=== PATIENT | female | born 1955 | race Caucasian/White ===

== ENCOUNTER 2016-08-19 08:41 | Emergency (ER) | payer MEDICAID ==
[2016-08-19] MEDS ORDERED: 0.9 % SODIUM CHLORIDE 1000ML 1,000 ML IV PRN (08:52)
--- NOTE | 2016-08-19 08:59 | Emergency Department Record ---
History of Present Illness - General Chief Complaint: Chest Pain Stated Complaint: CHEST PAIN Time Seen by Provider: 08/19/16 08:52 Source: Patient, Family Mode of Arrival: Ambulatory Limitations: No limitations - History of Present Illness Initial Comments: 60 yo female presents with chest pain. The chest pain comes and goes. The first episode was Friday night. It was noted at that time to be a heavy feeling or squeeze. The onset was at rest. The discomfort has come and gone. It it mostly middle to left chest. At times it is sharper. It radiates at times to the shoulder, neck, jaw and between the shoulder blades at times. It is not reproduced with breathing, deep breaths, moving, or palpation. The longest the pain has lasted is about one minute. She has noted some discomfort with swallowing but this is not consistent. She is not having pain at this time. MD Complaint: Chest pain Onset/Timin -: Days(s) Onset: During rest Pain Location: Substernal Pain Radiation: Back Severity: Severe Quality: Sharp Consistency: Intermittent Improves With: Nothing Worsens With: Nothing Treatments Prior to Arrival: None - Related Data Allergies Allergy/AdvReac Type Severity Reaction Status Date / Time latex Allergy Intermediate Welts Verified 08/19/16 08:47 Travel Screening - Travel/Exposure Within Last 30 Days Have you traveled within the last 30 days?: No Review of Systems Constitutional: Denies: Chills, Fever, Malaise, Weakness Eyes: Denies: Eye discharge ENT: Denies: Congestion, Throat pain Respiratory: Denies: Cough, Dyspnea, Hemoptysis, Stridor, Wheezes Cardiovascular: Reports: Chest pain, Palpitations. Denies: Syncope Endocrine: Denies: Fatigue, Polydipsia, Polyuria Gastrointestinal: Denies: Abdominal pain, Diarrhea, Nausea, Vomiting Genitourinary: Denies: Dysuria, Urgency Musculoskeletal: Denies: Arthralgia, Back pain, Myalgia, Neck pain Skin: Denies: Bruising, Change in color, Rash Neurological: Denies: Confusion, Headache Psychiatric: Denies: Anxiety Hematological/Lymphatic: Denies: Blood Clots, Easy bleeding, Easy bruising, Swollen glands Past Medical History - SOCIAL HISTORY Smoking Status: Never smoker Alcohol Use: None Drug Use: None - RESPIRATORY Hx Respiratory Disorders: Yes Hx Sleep Apnea: Yes Hx of CPAP: Yes - CARDIOVASCULAR Hx Cardio Disorders: Yes Hx Cardiac Cath: Yes Hx Chest Pain: Yes Hx Hypertension: Yes Hx Palpitations: Yes Comment:: high cholestersol - NEURO Hx Neuro Disorders: No - GI Hx GI Disorders: No - Hx Genitourinary Disorders: No - ENDOCRINE Hx Endocrine Disorders: No - MUSCULOSKELETAL Hx Musculoskeletal Disorders: No - PSYCH Hx Psych Problems: No - HEMATOLOGY/ONCOLOGY Hx Hematology/Oncology Disorders: No Family Medical History Any Significant Family History?: No Physical Exam - General General Appearance: Alert, Oriented x3, Cooperative, No acute distress Limitations: No limitations - Head Head exam: Normal inspection - Eye Eye exam: Normal appearance. negative: Conjunctival injection - ENT ENT exam: Normal exam. negative: Mucous membranes moist Ear exam: Normal external inspection Nasal Exam: Normal inspection Mouth exam: Normal external inspection Teeth exam: Normal inspection Throat exam: Normal inspection - Neck Neck exam: Normal inspection, Full ROM. negative: Tenderness - Respiratory Respiratory exam: Normal lung sounds bilaterally. negative: Accessory muscle use, Chest wall tenderness, Decreased breath sounds, Respiratory distress, Rhonchi, Stridor, Wheezes - Cardiovascular Cardiovascular Exam: Regular rate, Normal rhythm, Normal heart sounds Peripheral Pulses: 2+: Radial (R), Radial (L) - GI/Abdominal GI/Abdominal exam: Soft. negative: Diminished bowel sounds, Tenderness - Rectal Rectal exam: Deferred - exam: Deferred - Extremities Extremities exam: Normal inspection, Full ROM, Normal capillary refill. negative: Pedal edema, Tenderness - Back Back exam: Reports: Normal inspection, Full ROM. Denies: Muscle spasm, Rash noted, Tenderness - Neurological Neurological exam: Alert, Normal gait, Oriented X3 - Psychiatric Psychiatric exam: Normal affect, Normal mood. negative: Agitated, Anxious, Depressed - Skin Skin exam: Dry, Intact, Normal color, Warm Course Vital Signs 08/19/16 08:42 Temperature 98.3 F Pulse Rate 67 Respiratory 14 Rate Blood Pressure 143/83 Pulse Ox 94 L - Reevaluation(s) Reevaluation #1: EKG 0839 NSR, rate 64, intervals QTc 473, axis left, poor R waves progression. No old. 08/19/16 08:58 Reevaluation #2: The patient denies a history of AMI. She was evaluated 3-4 years ago in [place] for chest pain. She had an abnormal stress test that lead to a cath. She states no intervention was performed. 08/19/16 08:59 Reevaluation #3: The labs were reviewed No acute changes in the CBC,Troponin Records were reviewed form [place] 12/21/14 Graded Exercise test Lexiscan: ST/T waves changes, Borderline positive 12/21/14 Breast attenuation, no stress induced ischemia. EF 69 EKG then similar poor r wave 05/26/13 Cath Report reviewed extremely minor luminal irregularities. essentially normal coronaries. 08/19/16 09:47 08/19/16 09:59 Reevaluation #4: D-dimer is negative CXR is negative 08/19/16 10:07 Reevaluation #5: I SW Dr Pena of [facility] [place] her prior work up with normal coronaries and a normal follow up stress test in 2014, he recommends repeat enzymes then appointment to be seen Friday with Dr Parker in the [facility] clinic. 08/19/16 10:48 - Consultations Consultation #1: 13:50 the repeat Troponin is negative DC home with follow up scheduled Medical Decision Making - Lab Data Result diagrams: 08/19/16 08:57 08/19/16 08:57 Disposition Disposition: Discharge Clinical Impression: Chest pain Qualifiers: Chest pain type: other chest pain Qualified Code(s): R07.89 - Other chest pain ; R07.8 - Other chest pain Disposition: Home, Self-Care Condition: (1) Good Instructions: Chest Pain (ED) Additional Instructions: Follow up with Dr Parker as scheduled on Friday Return if you have any pain that lasts longer than 5 minutes Return if any new symptoms, short of breath, dizzy, or any new concerns Forms: Patient Portal Access Time of Disposition: 13:48
[2016-08-19 09:05] LABS: BASO % 0.3 % (0-6); GRAN % 56.8 % (47-80); HEMATOCRIT 40.3 % (35.0-47.0); HEMOGLOBIN 13.8 gm/dl (11.6-16.0); LYMPH % 30.2 % (16-45); MEAN CORPUSCULAR HEMOGLOBIN 30.8 pg (27-33); MEAN CORPUSCULAR HGB CONC 34.2 g/dl (32-36); MEAN PLATELET VOLUME 10.4 fl (7.4-10.4); MONO % 8.7 % (0-9); PLATELET COUNT 298 K/uL (130-400); RED BLOOD COUNT 4.48 M/uL (3.80-5.40); RED CELL DISTRIBUTION WIDTH 12.4 % (11.5-14.5); WHITE BLOOD COUNT W/O DIFF 7.2 K/uL (4.2-12.2)
[2016-08-19 09:17] LABS: ALB/GLOB RATIO 1.5 (1.1-1.8); ALBUMIN 4.3 gm/dL (3.5-5.0); ALKALINE PHOSPHATASE 116 U/L (38-126); ALT/SGPT 64 U/L (9-52); ANION GAP 10.1 (7-16); AST/SGOT 41 U/L (14-36); BLOOD UREA NITROGEN 9 mg/dL (7-17); CARBON DIOXIDE 26.9 mmol/L (22-30); CREATINE PHOSPHOKINASE 124 U/L (30-135); CREATININE 0.6 mg/dL (0.52-1.04); EST GLOMERULAR FILTRATION RATE > 60 ml/min; GLUCOSE,RANDOM 132 mg/dL (70-110); TOTAL PROTEIN 7.2 gm/dL (6.3-8.2)
[2016-08-19 09:20] LABS: INR 0.89; PARTIAL THROMBOPLASTIN TIME 25.9 SECONDS (24.5-39.1); PROTHROMBIN TIME (PATIENT) 10.1 SECONDS (9.5-12.1)
[2016-08-19 09:21] LABS: D-DIMER 0.37 mg/L FEU (0-0.59)
[2016-08-19 09:30] LABS: CKMB 0.5 ug/L (0-6); TROPONIN I < 0.012 ng/mL (0.00-0.034)
[2016-08-19] MEDS ORDERED: ASPIRIN 325 MG TABLET PO ONE (10:14)
[2016-08-19 13:42] LABS: CKMB 0.4 ug/L (0-6)
[2016-08-19 13:46] LABS: TROPONIN I < 0.012 ng/mL (0.00-0.034)
--- NOTE | 2016-08-22 08:42 | RADIOLOGY REPORT ---
EXAM: CHEST, TWO VIEWS HISTORY: MID CHEST PAIN FOR FIVE DAYS. TECHNIQUE: Upright PA and lateral views of the chest were obtained. Comparison: Two view chest radiographic examination dated 07/18/16. FINDINGS: The heart remains normal in size and the pulmonary vasculature is nondilated. The thoracic aorta remains mildly tortuous. No new abnormal lung parenchymal opacity is seen nor is there costophrenic angle blunting or pneumothorax. Minor degenerative changes of the visualized spine again noted. IMPRESSION: NO RADIOGRAPHIC EVIDENCE OF ACUTE CARDIOPULMONARY DISEASE WITHOUT CHANGE SINCE . JOB NUMBER: [id number] [facility]
== END 2016-08-19 13:59 | disposition home or self-care (01) ==
LOC: ER 08:41
DX: R07.2 Precordial pain (principal); M25.512 Pain in left shoulder; I10 Essential (primary) hypertension
CPT/HCPCS: 71020; 80053; 82550; 82553; 84484; 85025; 85379; 85610; 85730; 93005; 93010; 99284